=== PATIENT | female | born 1970 ===

== ENCOUNTER 2016-09-28 14:07 | Emergency (ER) | payer OTHER ==
[2016-09-28 15:05] LABS: BASO % 0.2 % (0.0-2.0); EOS # 0.1 K/uL (0.0-0.7); EOS % 0.8 % (0.0-4.0); HEMOGLOBIN 12.6 g/dL (11.0-16.0); LYMPH # 2.4 K/uL (1.0-4.3); LYMPH % 30.7 % (20.0-40.0); MEAN CELL VOLUME 87.9 fL (81.0-99.0); MEAN CORPUSCULAR HEMOGLOBIN 30.6 pg (27.0-31.0); MEAN CORPUSCULAR HGB CONC 34.8 g/dL (33.0-37.0); MEAN PLATELET VOLUME 8.5 fL (7.2-11.7); MONO # 0.5 K/uL (0.0-0.8); MONO % 6.8 % (0.0-10.0); NEUT # 4.8 K/uL (1.8-7.0); NEUT % 61.5 % (50.0-75.0); NRBC % 0.1 % (0.0-2.0); RBC 4.12 Mil/uL (3.80-5.20); RED CELL DISTRIBUTION WIDTH 12.5 % (11.5-14.5); WHITE BLOOD COUNT 7.8 K/uL (4.8-10.8)
[2016-09-28 15:12] LABS: INR 1.1; PROTHROMBIN TIME 11.9 SECONDS (9.7-12.2)
[2016-09-28 15:14] LABS: ALBUMIN 3.8 g/dL (3.5-5.0)
--- NOTE | 2016-09-28 15:15 | C.PDOC ---
History Of Present Illness 46 yr old female w/o significant PMHx presents to the ER for evaluation of intermittent reproducible left sided chest pain for the past 2 weeks. Patient reports using pain is localized, non-radiating. Pt took Tylenol at home for pain with some improvement. Otherwise, pt denies fever, chills, headache, dizziness, visual changes, focal deficits, neck pain, SOB, palpitations, diaphoresis, nausea, vomiting, abdominal pain, back pain, edema. Pt admits, works at factory. Pt sts, was seen early in clinic, send to Ed for further evaluation. AT present time, pt is asymptomatic, not in any apparent distress. Time Seen by Provider: 09/28/16 14:41 Chief Complaint (Nursing): Chest Pain History Per: Patient History/Exam Limitations: no limitations Onset/Duration Of Symptoms: Intermittent Episodes (2 weeks) Past Medical History Reviewed: Historical Data, Nursing Documentation, Vital Signs Vital Signs: Last Vital Signs Temp 98.3 F 09/28/16 14:13 Pulse 83 09/28/16 14:13 Resp 20 09/28/16 14:13 BP 103/68 09/28/16 14:13 Pulse Ox 98 09/28/16 15:18 - Medical History PMH: Hypercholesterolemia Family History: States: No Known Family Hx - Social History Hx Alcohol Use: No Hx Substance Use: No - Immunization History Hx Tetanus Toxoid Vaccination: No Hx Influenza Vaccination: No Hx Pneumococcal Vaccination: No Review Of Systems Except As Marked, All Systems Reviewed And Found Negative. Constitutional: Negative for: Fever, Chills Cardiovascular: Positive for: Chest Pain (Left sided ). Negative for: Palpitations Respiratory: Negative for: Shortness of Breath Gastrointestinal: Negative for: Nausea, Vomiting, Abdominal Pain Neurological: Negative for: Weakness, Numbness, Headache Physical Exam - Physical Exam Appears: Well, Non-toxic, No Acute Distress Skin: Warm, Dry, No Rash Ear(s): Bilateral: Normal Oral Mucosa: Moist Throat: No Erythema, No Exudate, No Drooling Neck: Supple Chest: Symmetrical, No Deformity, Tenderness (Left sided anterior chest wall tenderness. Reproducible. Overlying 4th and 5th intercostal spaces. ), No Ecchymosis, No Subcutaneous Emphysema Cardiovascular: Rhythm Regular, No Murmur Respiratory: No Decreased Breath Sounds, No Accessory Muscle Use, No Rales, No Rhonchi, No Stridor, No Wheezing Gastrointestinal/Abdominal: Soft, No Tenderness, No Distention, No Guarding, No Rebound Back: No CVA Tenderness Extremity: Normal ROM, No Pedal Edema, No Swelling Neurological/Psych: Oriented x3, Normal Speech, Normal Motor ED Course And Treatment - Laboratory Results Result Diagrams: 09/28/16 14:59 09/28/16 14:59 Lab Interpretation: Normal ECG: Interpreted By Me, Viewed By Me ECG Rhythm: Sinus Rhythm (84) ECG Interpretation: Normal Interpretation Of ECG: SR@84/min, NAD, no acute T wave or ST-T changes. No previos EKG available to compare. O2 Sat by Pulse Oximetry: 98 (RA ) Pulse Ox Interpretation: Normal - Radiology CXR: Interpreted by Me, Viewed By Me - Other Rad CXR X-Ray: Read By Radiologist Interpretation: Patient Name / ID : BUCKY RYAN / [id number]. Exam Date : 09/28/2016 15:05:10 ( Approved ). Study Comment : Sex / Age : F / 46Y. Creator : Alex Shoemaker MD. Dictator : Alex Shoemaker MD. Apparel Manager : Soaping Machine Back Tender : Alex Shoemaker MD. Approver2 : Report Date : 15:40:48. My Comment : . HISTORY: chest pain. COMPARISON: No prior. TECHNIQUE: Chest PA and lateral. FINDINGS: LUNGS: Poor inspiration with lung volume, minor crowded bronchovascular markings and bibasilar atelectasis. PLEURA: No significant pleural effusion identified. No pneumothorax apparent. CARDIOVASCULAR: Normal. OSSEOUS STRUCTURES: Mild multilevel degenerative spondylosis of the thoracic spine. S. VISUALIZED UPPER ABDOMEN: Normal. OTHER FINDINGS: None. IMPRESSION: Poor inspiration with lung volume, minor crowded bronchovascular markings and bibasilar atelectasis Progress Note: On re-eavluation, pt is afebrile, hemodynamicaly stable. Non- toxic. PulseOx 98% rA. ENT: philly cute findings. neck: Supple, (-) JVD, (-) carotid bruits. Lungs: CTA B/L, BS equal B/L. CVS: (+)S1S2, reg. Abd: benign. Neurologicaly intact. No peripheral edema. Diagnostics and imaging review and appears without acute abnoramlities. Pt ahs clinical findings c/w left sided chest pain, reproducable. Pt advised and ref. to f/u with PMD, Card in 1-2 days for re-eval. return to ED if any worsening or new changes. Medical Decision Making Medical Decision Making: PLAN: * CXR * EKG * Troponin * CBC * CMP * HCG * Urinalysis Disposition Counseled Patient/Family Regarding: Studies Performed, Diagnosis, Need For Followup, Rx Given - Disposition Referrals: [facility] [Outside] Disposition: HOME/ ROUTINE Disposition Time: 16:23 Condition: STABLE Additional Instructions: Ibuprofen as need for pain Follow up with PMD, cardiology in 2-3 days for re-evaluation. Return to Ed if any worsening or new changes. Instructions: Chest Pain (ED) Print Language: GREENLANDIC - Clinical Impression Clinical Impression: Chest pain - PA / COMPLIANCE ANALYST / Resident Statement MD/DO has reviewed & agrees with the documentation as recorded. - Scribe Statement The provider has reviewed the documentation as recorded by the Scribe Sasha Yang All medical record entries made by the Scribe were at my direction and personally dictated by me. I have reviewed the chart and agree that the record accurately reflects my personal performance of the history, physical exam, medical decision making, and the department course for this patient. I have also personally directed, reviewed, and agree with the discharge instructions and disposition.
[2016-09-28 15:17] LABS: ALB/GLOB RATIO 1.2 (1.0-2.1); ALT/SGPT 48 U/L (9-52); AST/SGOT 34 U/L (14-36); BLOOD UREA NITROGEN 14 mg/dL (7-17); GFR AFRICAN-AMERICAN > 60; GFR NON-AFRICAN AMERICAN > 60
[2016-09-28 15:18] LABS: CALCIUM 8.9 mg/dl (8.6-10.4)
--- NOTE | 2016-09-28 15:42 | RAD ---
HISTORY: chest pain COMPARISON: No prior. TECHNIQUE: Chest PA and lateral FINDINGS: LUNGS: Poor inspiration with lung volume, minor crowded bronchovascular markings and bibasilar atelectasis PLEURA: No significant pleural effusion identified. No pneumothorax apparent. CARDIOVASCULAR: Normal. OSSEOUS STRUCTURES: Mild multilevel degenerative spondylosis of the thoracic spine. S. VISUALIZED UPPER ABDOMEN: Normal. OTHER FINDINGS: None. IMPRESSION: Poor inspiration with lung volume, minor crowded bronchovascular markings and bibasilar atelectasis Is
[2016-09-28 15:43] LABS: HCG,QUALITATIVE URINE NEGATIVE (NEGATIVE)
[2016-09-28 15:50] LABS: SQUAMOUS EPITHIAL < 1 /hpf (0-5); URINE BILIRUBIN NEGATIVE (NEGATIVE); URINE BLOOD NEGATIVE (NEGATIVE); URINE CLARITY Hazy (Clear); URINE COLOR Yellow (YELLOW); URINE GLUCOSE (UA) NORMAL (Normal); URINE LEUKOCYTE ESTERASE NEG Leu/uL (Negative); URINE NITRATE NEGATIVE (NEGATIVE); URINE PROTEIN NEGATIVE (NEGATIVE); URINE UROBILINOGEN NORMAL mg/dL (0.2-1.0)
[2016-09-28 17:06] VITALS: BP 103/67; PULSE 76; RESP 16; TEMP 97.4; O2SAT 99
--- NOTE | 2016-10-01 12:35 | CARD ---
APPROVED REPORT EKG Measurement Heart [id number] <Conclusion> Normal sinus rhythm with sinus arrhythmia T wave abnormality, consider anterior ischemia Prolonged QT Abnormal ECG
== END 2016-09-28 17:04 | disposition home or self-care (01) ==
LOC: C.ER 14:07
DX: R07.89 Other chest pain (principal)

== ENCOUNTER 2018-07-16 11:26 | Outpatient (CLI) | payer OTHER | END 2018-07-16 11:27 | disposition home or self-care (01) | LOC: C.MAMMO 11:26 | DX: Z12.31 Encounter for screening mammogram for malignant neoplasm of breast (principal) ==